=== PATIENT | female | born 1940 | race Caucasian/White ===

== ENCOUNTER 2016-12-09 19:28 | Emergency (ER) | payer MEDICARE, BC ==
--- NOTE | ~2016-12-09 | CR281 ---
[facility] A Service of [facility] RADIOLOGY TEXT RESULTS PATIENT: DANILO SANDERS LOCATION: [facility] : 44 UNIT #: [id number] AGE: [address]: Arturo Clayton DO SEX: F ORDER DR: [id number] [facility] [address] [place], [place] [address] [id number] E MR#: [id number] Acc #: [id number] NAME: DANILO SANDERS. : 1940 SEX: F STUDY DATE/TIME: 12/09/2016 19:52 UNIT: SUE ROOM: STUDY DESCRIPTION: CR Wrist Min 3 View Lt Attending Physician: Arturo Clayton D.O. Ordering Physician: Stevie Redman M.D. Primary Care Physician: Samuel Chavez M.D. MEDICAL IMAGING REPORT This report is preliminary unless electronic signature is present EXAM Left wrist. DATE OF EXAM 12/09/2016 HISTORY 76-year-old female with left wrist pain and swelling status post fall today. COMPARISON Left hand, same date. FINDINGS 3 views of the left hand demonstrate a moderately impacted and angulated transverse oblique fracture of the distal radial metaphysis. There is apex volar angulation. There is approximately 1 cm of impaction along the dorsal cortex. There is articular surface disruption along the central/ulnar aspect of the distal radius articular surface. Small avulsion fracture of the ulnar styloid. No dislocation. Carpal bones intact and in normal alignment. IMPRESSION 1. Impacted and angulated transverse fracture of the distal radial metaphysis with evidence of articular surface disruption. 2. Mildly displaced ulnar styloid avulsion fracture. Dictated by... Mauri Talamantes M.D. THIS IS AN ELECTRONICALLY VERIFIED REPORT Mauri Talamantes M.D. at 12/13/2016 7:48 AM [facility] A Service of [facility] RADIOLOGY TEXT RESULTS PATIENT: DANILO SANDERS LOCATION: [facility] : 42 UNIT #: [id number] AGE: [address]: Arturo Clayton DO SEX: F ORDER DR: Shahrzad TD: 12/10/2016 01:43 JOB #: [id number] MEDICAL IMAGING REPORT Page 1 of 1 COPY
--- NOTE | ~2016-12-09 | CR141 ---
[facility] A Service of [facility] RADIOLOGY TEXT RESULTS PATIENT: DANILO SANDERS LOCATION: [facility] : 42 UNIT #: [id number] AGE: [address]: Arturo Clayton DO SEX: F ORDER DR: [id number] [facility] [address] [place], [place] [address] [id number] E MR#: [id number] Acc #: [id number] NAME: DANILO SANDERS. : 1940 SEX: F STUDY DATE/TIME: 12/09/2016 19:52 UNIT: [facility] ROOM: STUDY DESCRIPTION: CR Hand Min 3 Views Lt Attending Physician: Arturo Clayton D.O. Ordering Physician: Stevie Redman M.D. Primary Care Physician: Samuel Chavez M.D. MEDICAL IMAGING REPORT This report is preliminary unless electronic signature is present EXAM Left hand. DATE OF EXAM 12/09/2016 HISTORY Left hand pain, status post fall today. COMPARISON Left wrist, same date. FINDINGS 3 views of the left hand demonstrate a moderately impacted and angulated transverse oblique intraarticular fracture of the distal radial metaphysis with involvement of the central/ulnar aspect of the distal radius articular surface. There is at least 1 cm of impaction along the dorsal cortex. [place] volar angulation at the fracture site. Minimally-displaced ulnar styloid avulsion fracture. Mild arthrosis of the first carpometacarpal joint. Diffuse bony demineralization. Multifocal degenerative changes throughout the interphalangeal joints. IMPRESSION 1. Moderately impacted and angulated intraarticular distal radius fracture, detailed above. 2. Minimally-displaced ulnar styloid avulsion fracture. Dictated by... Mauri Talamantes M.D. THIS IS AN ELECTRONICALLY VERIFIED REPORT Mauri Talamantes M.D. at 12/13/2016 7:48 AM [facility] A Service of [facility] RADIOLOGY TEXT RESULTS PATIENT: DANILO SANDERS LOCATION: [facility] : 44 UNIT #: [id number] AGE: [address]: Arturo Clayton DO SEX: F ORDER DR: KELLY/mi TD: 12/10/2016 01:46 JOB #: [id number] MEDICAL IMAGING REPORT Page 1 of 1 COPY
[~2016-12-09 19:28] MED LIST: ACETAMINOPHEN325 MG PO; AMLODIPINE BESY10 MG; AMLODIPINE BESYL5 MG PO; AMLODIPINE PO; ASPIRIN81 M2 PO; ATIVAN; CELEXA10 MG PO; CLOPIDOGREL BIS75 MG PO; FIBERCON625 MG; FLAGYL PO; LEVAQUIN PO; LEVOTHYROXINE88 MCG PO; LISINOPRIL; LORAZEPAM1 MG PO; NEURONTIN; NEURONTIN100 MG PO; PLAVIX; PRAVACHOL; PRAVASTATIN SOD40 MG PO; PRINIVIL40 MG PO; ST. JOSEPH ASPI81 M2; SYNTHROID; VITAMIN D 22000 UNIT PO; VITAMIN D2000 UNI1 PO; VITAMIN D400 UNI2
== END 2016-12-09 22:51 | disposition home or self-care (01) ==
LOC: CED 19:28
DX: S52.592A Other fractures of lower end of left radius, initial encounter for closed fracture (principal); S52.612A Displaced fracture of left ulna styloid process, initial encounter for closed fracture; I10 Essential (primary) hypertension; J44.9 Chronic obstructive pulmonary disease, unspecified; E78.5 Hyperlipidemia, unspecified; F17.200 Nicotine dependence, unspecified, uncomplicated; Z23 Encounter for immunization; Z79.899 Other long term (current) drug therapy; Z79.82 Long term (current) use of aspirin; W19.XXXA Unspecified fall, initial encounter; Y92.009 Unspecified place in unspecified non-institutional (private) residence as the place of occurrence of the external cause
CPT/HCPCS: 29125; 73110; 73130; 90471; 90715; 99284